=== PATIENT | female | born 1985 | race Caucasian/White ===

== ENCOUNTER 2019-07-16 12:38 | Emergency (ER) | payer OTHER ==
[~2019-07-16] VITALS: Ht 162.6 cm; Wt 63.5 kg
[2019-07-16 13:15] VITALS: BP 108/73
--- NOTE | 2019-07-16 13:32 | Emergency Room Report ---
History of Present Illness General Chief Complaint: Upper Extremity Injury Source: Patient Present Illness HPI 33-year-old female with no symptom past medical history here complaining of pain in the left finger after crushing injury at work yesterday. Patient reports that her finger got jammed in the door. Rating her pain 7 out of 10 without radiation. No relief. Denies tingling or numbness. Has full range of motion. No point tenderness is noted. Denies all other injuries, no motor or neurological deficits are noted. Allergies: Coded Allergies: No Known Allergies (Unverified , 07/16/19) Patient History Past Medical History: see triage record Past Surgical History: unable to obtain Pertinent Family History: none Now: No Immunizations: UTD Reviewed Nursing Documentation: PMH: Agreed; PSxH: Agreed Nursing Documentation-PMH Past Medical History: No Stated History Review of Systems All Other Systems: negative except mentioned in HPI Physical Exam Vital Signs Date Time Temp Pulse Resp B/P (MAP) Pulse Ox O2 Delivery O2 Flow Rate FiO2 07/16/19 12:43 98.1 71 17 108/73 (85) 99 Room Air Sp02 EP Interpretation: reviewed, normal General Appearance: no apparent distress, alert, GCS 15, non-toxic Head: normocephalic, atraumatic Eyes: bilateral eye normal inspection, bilateral eye PERRL ENT: hearing grossly normal, normal pharynx, no angioedema, normal voice Neck: full range of motion, supple/symm/no masses Respiratory: chest non-tender, lungs clear, normal breath sounds, no rhonchi, no wheezing, speaking full sentences Cardiovascular #1: regular rate, rhythm, no edema, no murmur Cardiovascular #2: 2+ radial (R), 2+ radial (L) Gastrointestinal: normal bowel sounds, non tender, soft, non-distended, no guarding, no rebound Rectal: deferred Musculoskeletal: back normal, digits/nails normal, non-tender, swelling - left index finger Neurologic: alert, motor strength/tone normal, oriented x3, sensory intact, responsive, speech normal Psychiatric: judgement/insight normal, memory normal, mood/affect normal, no suicidal/homicidal ideation Skin: no rash Lymphatic: no adenopathy Procedures Splinting Splinting : Consent: Verbal Location: left index finger Pre-Made Type: metal Pre-Proc Neuro Vasc Exam: normal Post-Proc Neuro Vasc Exam: normal Patient Tolerated: Well Complications: None Medical Decision Making PA Attestation All diagnoses and treatment plans were reviewed and discussed with my supervising physician Dr. Amador Diagnostic Impression: Primary Impression: Crushing injury of finger Additional Impression: Disp fx of proximal phalanx of right index finger with routine healing ER Course 33-year-old female with no symptom past medical history here complaining of pain in the left finger after crushing injury at work yesterday. Patient reports that her finger got jammed in the door. Rating her pain 7 out of 10 without radiation. No relief. Denies tingling or numbness. Has full range of motion. No point tenderness is noted. Denies all other injuries, no motor or neurological deficits are noted. Ddx considered but are not limited to: Crush injury of finger, finger fracture, finger sprain, finger dislocation Vital signs: are WNL, pt. is afebrile H&PE are most consistent with : Crushing injury of finger, fx left index finger ORDERS: Hand x-ray, ibuprofen ED INTERVENTIONS: Metal splint was applied to left index finger for symptom relief DISCHARGE: At this time pt. is stable for d/c to home. Will provide printed patient care instructions, and any necessary prescriptions. Care plan and follow up instructions have been discussed with the patient prior to discharge. Patient to follow-up with her primary care provider and referral to school psychology specialist as needed. If worsening symptoms return to the emergency room Patient was treated for possible fracture though the paperwork showed crushing injury. Patient is aware that the treatment for crushing injury as well as fractures are the same Other X-Ray Diagnostic Results Other X-Ray Diagnostic Results : X-Ray ordered: Index finger left # of Views/Limited Vs Complete: 3 View Indication: Pain EP Interpretation: Yes PA Xray: Interpretation reviewed, by supervising MD, and agrees with findings. Interpretation: no dislocation, other - fx left index finger Impression: Other - fx left index finger Electronically Signed by: Татьяна IVERSON Scribe Text Nondisplaced fracture in the proximal aspect of the left second distal phalanx. Last Vital Signs Date Time Temp Pulse Resp B/P (MAP) Pulse Ox O2 Delivery O2 Flow Rate FiO2 07/16/19 13:15 98.1 71 17 108/73 99 Room Air Disposition: HOME, SELF-CARE Condition: Stable Scripts Ibuprofen (Ibu) 800 Mg Tablet 800 MG PO BID, #30 TAB Prov: Татьяна Barros 07/16/19 Patient Instructions: Crush Injury, Fingers or Toes Additional Instructions: Take medication as directed, follow-up with your primary care provider, you need to be referred to school psychology specialist, if worsening symptoms return to the emergency room Татьяна Barros Jul 16, 2019 13:32
[2019-07-16] MEDS ORDERED: IBU800 MG PO (13:33)
[2019-07-16 13:49] VITALS: BP 108/73
--- NOTE | 2019-07-16 14:02 | Diagnostic Imaging Report ---
EXAM: XR Left Fingers, 2 or More Views CLINICAL HISTORY: TRAUMA TECHNIQUE: Frontal, lateral and oblique views of the fingers of the left hand. COMPARISON: None FINDINGS: Bones/joints: Nondisplaced fracture in the proximal aspect of the left second distal phalanx. Joint space is maintained. No bony lesion. Soft tissues: Soft tissue swelling. IMPRESSION: Nondisplaced fracture in the proximal aspect of the left second distal phalanx.
== END 2019-07-16 13:49 | disposition home or self-care (01) ==
LOC: EMR 13:40
DX: S67.191A Crushing injury of left index finger, initial encounter (principal); S62.661A Nondisplaced fracture of distal phalanx of left index finger, initial encounter for closed fracture; W23.0XXA Caught, crushed, jammed, or pinched between moving objects, initial encounter; Y92.9 Unspecified place or not applicable
CPT/HCPCS: 29130; 99283